=== PATIENT | female | born 1995 | race African-American/Black ===

== ENCOUNTER 2017-12-26 11:45 | Emergency (ER) | payer SELFPAY ==
[~2017-12-26] VITALS: Ht 175.3 cm; Wt 68.2 kg
[2017-12-26 11:52] VITALS: BP 133/50; PULSE 115; RESP 18; TEMP 99.9; O2SAT 99
[2017-12-26 12:13] VITALS: BP 97/57; PULSE 112; RESP 16; TEMP 99.4; O2SAT 98
[2017-12-26] MEDS ORDERED: IBUPROFEN 600 MG TAB PO ONE (12:30)
--- NOTE | 2017-12-26 13:18 | PD ---
HPI Chief Complaint: Cold / Flu Symptoms Time Seen by Provider: 12:30 Travel History International Travel<30 days: No Contact w/Intl Traveler<30days: No Traveled to known affect area: No History of Present Illness HPI 22-year-old female presents to the emergency room for evaluation of lightheadedness upon standing and nasal congestion for the past 3-4 days. She reports feeling feverish but never actually took her temperature. States she has had a decreased appetite and not eaten or drank over the past several days. States today she feels hungry [facility] gets [facility]. She denies earache, sore throat, facial pain, chest pain, abdominal pain, cough, nausea, vomiting, dysuria, urgency, frequency, flank pain , or chest pain. Patient denies any chronic medical conditions or daily medications. Patient denies possibility of , last menstrual cycle was earlier this month. PFSH Past Medical History ?: Not LMP: 12/07/2017 Social History Tobacco Use: No Allergies-Medications (Allergen,Severity, Reaction): Coded Allergies: No Known Allergies (Unverified , 12/26/17) Reported Meds & Prescriptions Reported Meds & Active Scripts Active No Active Prescriptions or Reported Medications Review of Systems Except as stated in HPI: all other systems reviewed are Neg Physical Exam Narrative GENERAL: Well-nourished, well-developed female no acute distress. Afebrile. Ambulatory. SKIN: Focused skin assessment warm/dry. HEAD: Normocephalic. No facial tenderness. EYES: No scleral icterus. No injection or drainage. NECK: Supple, trachea midline. No JVD or lymphadenopathy. ENT: Mucosa pink and moist. Mild erythema without exudates. No uvular edema. No uvular, palatal, or tonsillar deviation. Airway patent. Nasal turbinates appear normal without nasal blood, purulent drainage or septal hematoma. EARS: Bilateral pinnae and external canals appear within normal limits. Bilateral tympanic membranes without erythema, dullness or perforation. CARDIOVASCULAR: Regular rate and rhythm without murmurs, gallops, or rubs. RESPIRATORY: Breath sounds equal bilaterally. No accessory muscle use. No crackles, rales, wheezes, or rhonchi. Data Data Last Documented VS Vital Signs Date Time Temp Pulse Resp B/P (MAP) Pulse Ox O2 Delivery O2 Flow Rate FiO2 12/26/17 12:13 99.4 112 16 97/57 (70) 98 Room Air Orders Orders Ibuprofen (Motrin) (12/26/17 12:30) Group A Rapid Strep Screen (12/26/17 12:18) Influenzae A/B Antigen (12/26/17 12:18) Strep Culture (Group A) (12/26/17 12:30) MDM Medical Decision Making Medical Screen Exam Complete: Yes Emergency Medical Condition: Yes Medical Record Reviewed: Yes Differential Diagnosis Viral syndrome, influenza, dehydration, pneumonia Narrative Course 22 year-old female presents to the emergency room for evaluation of nasal congestion and weakness for the past 4 days. Patient denies any fevers. She is afebrile well-appearing in the emergency room. Slightly tachycardic upon arrival. Patient admitted to not having eaten or drank anything the past several days because of decreased appetite but states while in the ED that she is hungry and would like to go to [place]. She adamantly declined IV access stating "I will get up and run out of here." She has no associated symptoms. Physical exam is completely unremarkable. Patient is very well- appearing overall, laughing, smiling. I suspect she is dehydrated from viral illness. Rapid influenza and strep are negative. She was given 2 bottles of Gatorade to drink while in the ED and drank them without difficulty. Patient was told to follow-up with the primary care physician or return for worsening symptoms. She understands and agrees to plan. Diagnosis Primary Impression: Viral syndrome Referrals: Neuroradiologist Additional Instructions: Rest and drink plenty of fluids. Take ibuprofen with food as directed, as needed for pain. Follow-up with a primary care physician. Return to the emergency room for worsening symptoms. Scripts No Active Prescriptions or Reported Meds Disposition: 01 DISCHARGE HOME Condition: Stable Altagracia Elizalde Dec 26, 2017 13:18
[2017-12-26 13:20] VITALS: BP 106/58; PULSE 108
== END 2017-12-26 13:38 | disposition home or self-care (01) ==
LOC: NED 11:45 → NEPK 13:38
DX: B34.9 Viral infection, unspecified (principal)
CPT/HCPCS: 87081; 87804; 87880; 99283